=== PATIENT | female | born 1960 | race Caucasian/White ===

== ENCOUNTER 2020-04-16 13:42 | Outpatient (CLI) | payer BC | END 2020-04-16 13:43 | disposition home or self-care (01) | LOC: COV 13:42 | PROVIDERS: ATTEND Family Medicine | DX: R05 Cough (principal); Z20.828 Contact with and (suspected) exposure to other viral communicable diseases; R09.81 Nasal congestion; R68.83 Chills (without fever); J02.9 Acute pharyngitis, unspecified; R53.83 Other fatigue ==